=== PATIENT | female | born 1995 | race Caucasian/White ===

== ENCOUNTER 2017-10-13 05:16 | Emergency (ER) | payer BC ==
[~2017-10-13] VITALS: Ht 162.6 cm; Wt 79.4 kg
[~2017-10-13 05:16] MED LIST: AZIT-21 PO; BIRTH CONTORL PO; CETI10TA17; DICL50TA4 PO; NEOM10DR6 RIGHT EAR; PSEU120T53 PO; RT-ALBUINH IH
--- OUTSIDE RECORDS SUMMARY | 2017-10-13 05:21 | XMS REPORT ---
Author Author MARY FINLEY [facility] eClinicalWorks Address Unknown Phone Unavailable Care Team Providers Care Bulk Materials Handling Plant Operator Name Role Phone MARY FINLEY Unavailable Allergies No Known Allergies Problems Problem Type Condition Code Onset Dates Condition Status Assessment Social anxiety disorder F40.10 Active Problem Reactive airway disease 493.90 Active Problem Viral pharyngitis 462 Active Problem Social anxiety disorder F40.10 Active Problem Other general counseling and advice for contraceptive management V25.09 Active Problem Encounter for insertion of intrauterine contraceptive device V25.11 Active Problem Post-nasal discharge 473.9 Active Problem Screening examination for venereal disease V74.5 Active Medications No Known Medications Procedures Procedure Coding System Code Date Psychotherapy, patient &/family, 45 minutes, established patient CPT-4 34667 Sep 11, 2015 Results No Known Results Summary Purpose eClinicalWorks Submission
--- OUTSIDE RECORDS SUMMARY | 2017-10-13 05:21 | XMS REPORT ---
Author Author LUCIANO ROBERTS [facility] Address [address] [place] [address] Care Team Providers Care Belt Picker Name Role Phone LUCIANO ROBERTS Unavailable PROBLEMS Type Condition ICD9-CM Code [id number] Code Onset Dates Condition Status SNOMED Code Problem High ankle sprain of right lower extremity, initial encounter S93.431A Active 41249737 Problem Generalized social phobia F40.11 Active 35030734 Problem Moderate episode of recurrent major depressive disorder F33.1 Active 698660093 Problem Social anxiety disorder F40.10 Active 60397259 ALLERGIES Unknown Allergies SOCIAL HISTORY No smoking Hx information available PLAN OF CARE VITAL SIGNS MEDICATIONS Unknown Medications RESULTS No Results PROCEDURES No Known procedures IMMUNIZATIONS No Known Immunizations
--- OUTSIDE RECORDS SUMMARY | 2017-10-13 05:22 | XMS REPORT ---
Author Author MARY FINLEY [facility] eClinicalWorks Address Unknown Phone Unavailable Care Team Providers Care Grocery Caddy Name Role Phone MARY FINLEY Unavailable Allergies No Known Allergies Problems Problem Type Condition Code Onset Dates Condition Status Assessment Social anxiety disorder F40.10 Active Problem Social anxiety disorder F40.10 Active Medications No Known Medications Procedures Procedure Coding System Code Date Psychotherapy, patient &/family, 45 minutes, established patient CPT-4 75803 May 04, 2016 Results No Known Results Summary Purpose eClinicalWorks Submission
--- OUTSIDE RECORDS SUMMARY | 2017-10-13 05:22 | XMS REPORT ---
Author Author LUCIANO ROBERTS [facility] eClinicalWorks Address Unknown Phone Unavailable Care Team Providers Care Sheet Layer Name Role Phone LUCIANO ROBERTS CP Unavailable Allergies, Adverse Reactions, Alerts Substance Reaction Event Type Red Dye Info Not Available Non Drug Allergy Problems Problem Type Condition Code Onset Dates Condition Status Problem Social anxiety disorder F40.10 Active Assessment Social anxiety disorder F40.10 Active Problem Moderate episode of recurrent major depressive disorder F33.1 Active Assessment Moderate episode of recurrent major depressive disorder F33.1 Active Medications Medication Code System Code Instructions Start Date End Date Status Dosage Ortho Tri-Cyclen (28) [facility] [address]-74 0.18/0.215/0.25 MG-35 MCG Orally Once a day Apr 16, 2016 1 tablet Singulair [facility] [address]-08 10 MG Orally Once a day Mar 29, 2015 1 tablet in the evening Prozac [facility] [address]-56 10 mg Orally Once a day May 12, 2016 1 capsule in the morning Procedures Procedure Coding System Code Date Office Visit, Est Pt., Level 3 CPT-4 91462 May 12, 2016 Vital Signs Date/Time: May 12, 2016 Cardiac Monitoring Heart Rate 78 bpm Weight 192 lbs Height 64 in BMI 32.95 Index Blood Pressure Diastolic 60 mmHg Blood Pressure Systolic 118 mmHg Results No Known Results Summary Purpose eClinicalWorks Submission
--- OUTSIDE RECORDS SUMMARY | 2017-10-13 05:22 | XMS REPORT ---
Author Author AMRY FINLEY [facility] eClinicalWorks Address Unknown Phone Unavailable Care Team Providers Care Sales Representative Door To Door Name Role Phone MARY FINLEY Unavailable Allergies [...] Coding System Code Date Psychotherapy, patient &/family, 30 minutes, established patient CPT-4 23108 Mar 15, 2016 Results No Known Results Summary Purpose eClinicalWorks Submission
--- OUTSIDE RECORDS SUMMARY | 2017-10-13 05:22 | XMS REPORT ---
Author Author MEHDI HERNANDEZ [facility] eClinicalWorks Address Unknown Phone Unavailable Care Team Providers Care Safety Engineer Name Role Phone MEHDI HERNANDEZ CP Unavailable Allergies, Adverse Reactions, Alerts Substance Reaction Event Type Red Dye Info Not Available Non Drug Allergy Problems Problem Type Condition Code Onset Dates Condition Status Assessment Reactive airway disease, unspecified asthma severity, uncomplicated J45.909 Active Problem Social anxiety disorder F40.10 Active Medications Medication Code System Code Instructions Start Date End Date Status Dosage Loratadine [facility] [address]-60 10 mg Orally Once a day in the AM Apr 12, 2016 1 tablet Singulair [facility] [address]-77 10 mg Orally Once a day Apr 12, 2016 1 tablet in the evening Mirena [facility] [address]-24 20 MCG/24HR Intrauterine not defined Procedures Procedure Coding System Code Date Office Visit, Est Pt., Level 3 CPT-4 12640 Apr 12, 2016 Vital Signs Date/Time: Apr 12, 2016 Cardiac Monitoring Heart Rate 88 bpm Weight 193.7 lbs Height 64 in BMI 33.24 Index Blood Pressure Diastolic 70 mmHg Blood Pressure Systolic 124 mmHg Results No Known Results Summary Purpose eClinicalWorks Submission
--- OUTSIDE RECORDS SUMMARY | 2017-10-13 05:22 | XMS REPORT ---
Author Author MEHDI HERNANDEZ [facility] eClinicalWorks Address Unknown Phone Unavailable Care Team Providers Care Cigar Making Machine Operator Name Role Phone MEHDI HERNANDEZ CP Unavailable Allergies, Adverse Reactions, Alerts Substance Reaction Event Type Red Dye Info Not Available Non Drug Allergy Problems Problem Type Condition ICD-9 Code Onset Dates Condition Status Problem Viral pharyngitis 462 Active Problem Post-nasal discharge 473.9 Active Problem Reactive airway disease 493.90 Active Problem Encounter for insertion of intrauterine contraceptive device V25.11 Active Assessment Reactive airway disease 493.90 Active Problem Screening examination for venereal disease V74.5 Active Problem Other general counseling and advice for contraceptive management V25.09 Active Medications Medication Code System Code Instructions Start Date End Date Status Dosage Ventolin HFA [facility] [address]-59 108 (90 Base) MCG/ACT Inhalation every 4 hrs Mar 29, 2015 2 puffs as needed Mirena [facility] [address]-82 20 MCG/24HR Intrauterine not defined Singulair [facility] [address]-84 10 MG Orally Once a day Mar 29, 2015 1 tablet in the evening ZyrTEC [facility] [address]-84 10 MG Orally Once a day Mar 29, 2015 Jul 27, 2015 1 tablet as needed Procedures Procedure Coding System Code Date Office Visit, Est Pt., Level 3 CPT-4 78717 Mar 29, 2015 Vital Signs Date/Time: Mar 29, 2015 Temperature 98.5 F Weight 169.1 lbs Height 64 in BMI 29.02 Index Blood Pressure Diastolic 74 mmHg Blood Pressure Systolic 118 mmHg Cardiac Monitoring Heart Rate 84 bpm BMIPercentile 91.71 % Wt Percentile 91.3 % Results No Known Results Summary Purpose eClinicalWorks Submission
--- OUTSIDE RECORDS SUMMARY | 2017-10-13 05:22 | XMS REPORT ---
Author Author VERONA PEÑA Organization [facility] Address [address] [place] [address] Care Team Providers Care Science Consultant Name Role Phone VERONA PEÑA Unavailable PROBLEMS Type Condition ICD9-CM Code [id number] Code Onset Dates Condition Status SNOMED Code Problem Reflux esophagitis K21.0 Active 878099504 Problem High ankle sprain of right lower extremity, initial encounter S93.431A Active 41265281 Problem Social anxiety disorder F40.10 Active 58503042 Problem Generalized social phobia F40.11 Active 27186335 Problem Moderate episode of recurrent major depressive disorder F33.1 Active 168110355 ALLERGIES Substance Reaction Event Type Date Status Venlafaxine HCl ER hives Drug Allergy Jul, Active prozac rash Non Drug Allergy Jul, Active Red Dye Unknown Non Drug Allergy Jul, Active SOCIAL HISTORY No smoking Hx information available PLAN OF CARE Activity Details Follow Up 2 Months with Vincent f/delia reflux Reason: VITAL SIGNS Height 64 in 2016-07-22 Weight 195.8 lbs 2016-07-22 Temperature 97.6 degrees Fahrenheit 2016-07-22 Heart Rate 86 bpm 2016-07-22 Respiratory Rate 18 2016-07-22 BMI 33.61 kg/m2 2016-07-22 Blood pressure systolic 110 mmHg 2016-07-22 Blood pressure diastolic 72 mmHg 2016-07-22 MEDICATIONS Medication Instructions Dosage Frequency Start Date End Date Duration Status Zofran ODT 4 MG Orally every 8 hrs 1 tablet on the tongue and allow to dissolve 8h Jul, 30 day(s) Active RESULTS No Results PROCEDURES Procedure Date Ordered Related Diagnosis Body Site Office Visit, Est Pt., Level 4 Jul 22, 2016 IMMUNIZATIONS No Known Immunizations
--- OUTSIDE RECORDS SUMMARY | 2017-10-13 05:22 | XMS REPORT ---
Author Author MARY FINLEY [facility] eClinicalWorks Address Unknown Phone Unavailable Care Team Providers Care Machine Feller Name Role Phone MARY FINLEY Unavailable Allergies [...] Medications Procedures Procedure Coding System Code Date Psych diagnostic evaluation, established patient CPT-4 41494 Jul 10, 2015 Results No Known Results Summary Purpose eClinicalWorks Submission
--- OUTSIDE RECORDS SUMMARY | 2017-10-13 05:22 | XMS REPORT ---
Author Author LUCIANO ROBERTS Organization [facility] Address [address] [place] [address] Care Team Providers Care Basket Operator Name Role Phone LUCIANO ROBERTS Unavailable PROBLEMS Type Condition ICD9-CM Code [id number] Code Onset Dates Condition Status SNOMED Code Problem Reflux esophagitis K21.0 Active 379258685 Problem High ankle sprain of right lower extremity, initial encounter S93.431A Active 87187634 Problem Social anxiety disorder F40.10 Active 30114341 Problem Generalized social phobia F40.11 Active 94682484 Problem Moderate episode of recurrent major depressive disorder F33.1 Active 679511944 ALLERGIES Substance Reaction Event Type Date Status prozac rash Non Drug Allergy May, Active Red Dye Unknown Non Drug Allergy May, Active SOCIAL HISTORY Never Assessed PLAN OF CARE Activity Details Follow Up 4 Weeks Reason: VITAL SIGNS Height 64 in 2016 Weight 194.9 lbs 2016 Heart Rate 80 bpm 2016 Respiratory Rate 20 2016 BMI 33.45 kg/m2 2016 Blood pressure systolic 118 mmHg 2016 Blood pressure diastolic 70 mmHg 2016 MEDICATIONS Medication Instructions Dosage Frequency Start Date End Date Duration Status Ortho Tri-Cyclen (28) 0.18/0.215/0.25 MG-35 MCG Orally Once a day 1 tablet 24h 16 Apr, 2016 28 day(s) Active Venlafaxine HCl 37.5 MG Orally as directed 1 tablet with food for 7 days then increase to twice a day May, Active RESULTS No Results PROCEDURES No Known procedures IMMUNIZATIONS No Known Immunizations MEDICAL (GENERAL) HISTORY Type Description Date Medical History Depression Medical History Anxiety Surgical History wisdom teeth
--- OUTSIDE RECORDS SUMMARY | 2017-10-13 05:22 | XMS REPORT ---
Author CATARINA Valente [facility] eClinicalWorks Address Unknown Phone Unavailable Care Team Providers Care Material Damage Appraiser Name Role Phone CATARINA LAURA CP Unavailable Allergies, Adverse Reactions, Alerts Substance Reaction Event Type Red Dye Info Not Available Non Drug Allergy Problems Problem Type Condition Code Onset Dates Condition Status Problem Viral pharyngitis 462 Active Problem Post-nasal discharge 473.9 Active Problem Reactive airway disease 493.90 Active Problem Encounter for insertion of intrauterine contraceptive device V25.11 Active Assessment Pain in left toe(s) M79.675 Active Problem Screening examination for venereal disease V74.5 Active Problem Other general counseling and advice for contraceptive management V25.09 Active Medications Medication Code System Code Instructions Start Date End Date Status Dosage Mirena [facility] [address]-60 20 MCG/24HR Intrauterine not defined Procedures Procedure Coding System Code Date Office Visit, Est Pt., Level 4 CPT-4 51054 May 23, 2015 X-RAY EXAM OF FOOT CPT-4 98294 May 23, 2015 Vital Signs Date/Time: May 23, 2015 Temperature 98.1 F Weight 177.3 lbs Height 64 in BMI 30.43 Index Blood Pressure Diastolic 72 mmHg Blood Pressure Systolic 126 mmHg Cardiac Monitoring Heart Rate 80 bpm BMIPercentile 93.69 % Wt Percentile 93.77 % Results No Known Results Summary Purpose eClinicalWorks Submission
--- OUTSIDE RECORDS SUMMARY | 2017-10-13 05:22 | XMS REPORT ---
Author JOE Zapien [facility] eClinicalWorks Address Unknown Phone Unavailable Care Team Providers Care Grain Elevator Operator Name Role Phone JOE BRYAN CP Unavailable Allergies, Adverse Reactions, Alerts Substance Reaction Event Type Red Dye Info Not Available Non Drug Allergy Problems Problem Type Condition Code Onset Dates Condition Status Assessment Ear pain, right H92.01 Active Problem Reactive airway disease 493.90 Active Problem Viral pharyngitis 462 Active Problem Social anxiety disorder F40.10 Active Problem Other general counseling and advice for contraceptive management V25.09 Active Problem Encounter for insertion of intrauterine contraceptive device V25.11 Active Problem Post-nasal discharge 473.9 Active Problem Screening examination for venereal disease V74.5 Active Medications Medication Code System Code Instructions Start Date End Date Status Dosage Mirena [facility] [address]-15 20 MCG/24HR Intrauterine not defined Procedures Procedure Coding System Code Date Office Visit, Est Pt., Level 2 CPT-4 91317 Jul 28, 2015 Vital Signs Date/Time: Jul 28, 2015 Temperature 98.3 F Weight 184 lbs Height 64 in BMI 31.58 Index Blood Pressure Diastolic 68 mmHg Blood Pressure Systolic 118 mmHg Cardiac Monitoring Heart Rate 78 bpm Results No Known Results Summary Purpose eClinicalWorks Submission
--- OUTSIDE RECORDS SUMMARY | 2017-10-13 05:22 | XMS REPORT ---
Author Author GILDARDO ZARAGOZA Organization [facility] Address [address] [place] [address] Care Team Providers Care Registered Dental Assistant Rda Name Role Phone VIRGILIO ZARAGOZAY Unavailable PROBLEMS Type Condition ICD9-CM Code [id number] Code Onset Dates Condition Status SNOMED Code Problem Social anxiety disorder F40.10 Active 34606965 Assessment Dyspareunia in female N94.1 Jan, Active 05409615 Assessment Right lower quadrant abdominal pain R10.31 Jan, Active 419865574 ALLERGIES Substance Reaction Event Type Date Status Red Dye Unknown Non Drug Allergy Jan, Active SOCIAL HISTORY No smoking Hx information available PLAN OF CARE VITAL SIGNS Height 64 in 2016-02-25 Weight 191.0 lbs 2016-02-25 Heart Rate 78 bpm 2016-02-25 Respiratory Rate 18 2016-02-25 BMI 32.78 kg/m2 2016-02-25 Blood pressure systolic 122 mmHg 2016-02-25 Blood pressure diastolic 84 mmHg 2016-02-25 MEDICATIONS Medication Instructions Dosage Frequency Start Date End Date Duration Status Mirena 20 MCG/24HR Active Ibuprofen 200 MG Orally every 6 hrs 1 tablet as needed 6h Active RESULTS No Results PROCEDURES Procedure Date Ordered Related Diagnosis Body Site Office Visit, Est Pt., Level 3 February 25, 2016 IMMUNIZATIONS No Known Immunizations
--- OUTSIDE RECORDS SUMMARY | 2017-10-13 05:22 | XMS REPORT ---
Author PAUL Bower [facility] eClinicalWorks Address Unknown Phone Unavailable Care Team Providers Care Residential Appraiser Name Role Phone PAUL LOFTON CP Unavailable Allergies, Adverse Reactions, Alerts Substance Reaction Event Type Red Dye Info Not Available Non Drug Allergy Problems Problem Type Condition Code Onset Dates Condition Status Assessment Abdominal pain, unspecified location R10.9 Active Assessment Eczema, unspecified type L30.9 Active Problem Reactive airway disease 493.90 Active [...] Start Date End Date Status Dosage Mirena [facility] [address]-98 20 MCG/24HR Intrauterine not defined Procedures Procedure Coding System Code Date Office Visit, Est Pt., Level 3 CPT-4 56954 Mar 19, 2016 Vital Signs Date/Time: Mar 19, 2016 Cardiac Monitoring Heart Rate 80 bpm Weight 194.6 lbs Height 64 in BMI 33.40 Index Blood Pressure Diastolic 76 mmHg Blood Pressure Systolic 120 mmHg Results No Known Results Summary Purpose eClinicalWorks Submission
--- OUTSIDE RECORDS SUMMARY | 2017-10-13 05:22 | XMS REPORT ---
Author Author MARY FINLEY [facility] eClinicalWorks Address Unknown Phone Unavailable Care Team Providers Care Staff Air Tactical Officer Name Role Phone MARY FINLEY Unavailable Allergies No Known Allergies Problems Problem Type Condition Code Onset Dates Condition Status Assessment Social anxiety disorder F40.10 Active Problem Social anxiety disorder F40.10 Active Medications No Known Medications Procedures Procedure Coding System Code Date Psychotherapy, patient &/family, 45 minutes, established patient CPT-4 81043 May 10, 2016 Results No Known Results Summary Purpose eClinicalWorks Submission
--- OUTSIDE RECORDS SUMMARY | 2017-10-13 05:22 | XMS REPORT ---
Author KIRILL Polanco [facility] eClinicalWorks Address Unknown Phone Unavailable Care Team Providers Care Bulk Sausage Casing Tier Off Name Role Phone KIRILL PETERSEN CP Unavailable Allergies, Adverse Reactions, Alerts Substance Reaction Event Type Red Dye Info Not Available Non Drug Allergy Problems Problem Type Condition Code Onset Dates Condition Status Assessment Viral syndrome B34.9 Active Assessment Sore throat J02.9 Active Assessment Nausea R11.0 Active Problem Reactive airway disease 493.90 Active [...] Start Date End Date Status Dosage Mirena [facility] [address]-52 20 MCG/24HR Intrauterine not defined Procedures Procedure Coding System Code Date Office Visit, Est Pt., Level 3 CPT-4 97692 January 22, 2016 STREP A ASSAY W/OPTIC CPT-4 28559 January 22, 2016 Vital Signs Date/Time: January 22, 2016 Cardiac Monitoring Heart Rate 86 bpm Weight 194 lbs Height 64 in Blood Pressure Diastolic 72 mmHg Blood Pressure Systolic 128 mmHg Results No Known Results Summary Purpose eClinicalWorks Submission
--- OUTSIDE RECORDS SUMMARY | 2017-10-13 05:22 | XMS REPORT ---
Author Author LUCIANO ROBERTS [facility] eClinicalWorks Address Unknown Phone Unavailable Care Team Providers Care Social Media Developer Name Role Phone LUCIANO ROBERTS CP Unavailable Allergies, Adverse Reactions, Alerts Substance Reaction Event Type prozac rash Non Drug Allergy Red Dye Info Not Available Non Drug Allergy Problems Problem Type Condition Code Onset Dates Condition Status Problem Social anxiety disorder F40.10 Active Assessment Social anxiety disorder F40.10 Active Problem Moderate episode of recurrent major depressive disorder F33.1 Active Assessment Moderate episode of recurrent major depressive disorder F33.1 Active Medications Medication Code System Code Instructions Start Date End Date Status Dosage Venlafaxine HCl [facility] [address]-86 37.5 MG Orally as directed 2016 1 tablet with food for 7 days then increase to twice a day Ortho Tri-Cyclen (28) [facility] [address]-86 0.18/0.215/0.25 MG-35 MCG Orally Once a day Apr 16, 2016 1 tablet Procedures Procedure Coding System Code Date Office Visit, Deepa Pt., Level 2 CPT-4 64201 2016 Vital Signs Date/Time: 2016 Cardiac Monitoring Heart Rate 80 bpm Weight 194.9 lbs Height 64 in BMI 33.45 Index Blood Pressure Diastolic 70 mmHg Blood Pressure Systolic 118 mmHg Results No Known Results Summary Purpose eClinicalWorks Submission
--- OUTSIDE RECORDS SUMMARY | 2017-10-13 05:23 | XMS REPORT ---
Author Author MARY FINLEY [facility] eClinicalWorks Address Unknown Phone Unavailable Care Team Providers Care Human Resources Operations Manager Name Role Phone MARY FINLEY Unavailable Allergies [...] patient &/family, 45 minutes, established patient CPT-4 03318 February 11, 2016 Results No Known Results Summary Purpose eClinicalWorks Submission
--- OUTSIDE RECORDS SUMMARY | 2017-10-13 05:23 | XMS REPORT ---
Author PAUL Bower [facility] eClinicalWorks Address Unknown Phone Unavailable Care Team Providers Care Quality Assistant Name Role Phone PAUL LOFTON CP Unavailable Allergies, Adverse Reactions, Alerts Substance Reaction Event Type Red Dye Info Not Available Non Drug Allergy Problems Problem Type Condition Code Onset Dates Condition Status Assessment Sore throat J02.9 Active Assessment Pharyngitis, unspecified etiology J02.9 Active Problem Reactive airway disease 493.90 Active [...] Start Date End Date Status Dosage Mirena [facility] [address]-94 20 MCG/24HR Intrauterine not defined Procedures Procedure Coding System Code Date Office Visit, Est Pt., Level 3 CPT-4 69721 Mar 25, 2016 STREP A ASSAY W/OPTIC CPT-4 46625 Mar 25, 2016 Vital Signs Date/Time: Mar 25, 2016 Cardiac Monitoring Heart Rate 86 bpm Weight 193.6 lbs Height 64 in BMI 33.23 Index Blood Pressure Diastolic 72 mmHg Blood Pressure Systolic 122 mmHg Results No Known Results Summary Purpose eClinicalWorks Submission
--- OUTSIDE RECORDS SUMMARY | 2017-10-13 05:23 | XMS REPORT ---
Author Author MEHDI HERNANDEZ Organization eClinicalWorks Address Unknown Phone Unavailable Care Team Providers Care Liquid Loader Name Role Phone MEHDI HERNANDEZ CP Unavailable Allergies, Adverse Reactions, Alerts Substance Reaction Event Type Red Dye Info Not Available Non Drug Allergy Problems Problem Type Condition Code Onset Dates Condition Status Assessment Knee pain M25.569 Active Problem Reactive airway disease 493.90 Active [...] Instructions Start Date End Date Status Dosage Ibuprofen [facility] [address]-07 200 MG Orally every 6 hrs 1 tablet as needed Mirena [facility] [address]-89 20 MCG/24HR Intrauterine not defined Procedures Procedure Coding System Code Date Office Visit, Est Pt., Level 3 CPT-4 10344 November 13, 2015 Vital Signs Date/Time: November 13, 2015 Temperature 98.7 F Weight 191.0 lbs Height 64 in BMI 32.78 Index Blood Pressure Diastolic 78 mmHg Blood Pressure Systolic 120 mmHg Cardiac Monitoring Heart Rate 76 bpm Results No Known Results Summary Purpose eClinicalWorks Submission
--- OUTSIDE RECORDS SUMMARY | 2017-10-13 05:23 | XMS REPORT ---
Author Author BANMARCO Organization [facility] Address [address] [place] [address] Care Team Providers Care Azure Developer Name Role Phone MARCO CEVALLOS Unavailable PROBLEMS Type Condition ICD9-CM Code NFA08-PR Code Onset Dates Condition Status SNOMED Code Problem Social anxiety disorder F40.10 Active 98513058 Assessment Encounter for IUD removal Z30.432 Apr, Active [id number] Assessment Oral contraception initial prescription Z30.011 Apr, Active [id number] ALLERGIES Substance Reaction Event Type Date Status Red Dye Unknown Non Drug Allergy Apr, Active SOCIAL HISTORY No smoking Hx information available PLAN OF CARE VITAL SIGNS Height 64 in 2016-04-16 Weight 195.5 lbs 2016-04-16 Heart Rate 84 bpm 2016-04-16 Respiratory Rate 18 2016-04-16 BMI 33.55 kg/m2 2016-04-16 Blood pressure systolic 136 mmHg 2016-04-16 Blood pressure diastolic 74 mmHg 2016-04-16 MEDICATIONS Medication Instructions Dosage Frequency Start Date End Date Duration Status Ventolin HFA 108 (90 Base) MCG/ACT Inhalation every 4 hrs 2 puffs as needed 4h Mar, Active Singulair 10 MG Orally Once a day 1 tablet in the evening 24h Mar, 30 day(s) Active Ibuprofen 200 MG Orally every 6 hrs 1 tablet as needed 6h Active Ortho Tri-Cyclen (28) 0.18/0.215/0.25 MG-35 MCG Orally Once a day 1 tablet 24h 16 Apr, 2016 28 day(s) Active Zofran ODT 8 MG Orally 3 times a day as directed 8h Dec, Active Mucinex DM 30-600 MG Orally every 12 hrs 1 tablet as needed 12h Active Pepto-Bismol 262 MG Orally 8 time(s) a day 2 tablets as needed Active Tessalon Perles 100 MG Orally Three times a day 1 capsule as needed 8h Mar, Active RESULTS Name Result Date Reference Range TEST, URINE (IN HOUSE) 2016-04-16 RESULTS Negative Lot # [id number] Control + Exp date PROCEDURES Procedure Date Ordered Related Diagnosis Body Site URINE TEST Apr 16, 2016 REMOVE INTRAUTERINE DEVICE Apr 16, 2016 IMMUNIZATIONS No Known Immunizations
--- OUTSIDE RECORDS SUMMARY | 2017-10-13 05:23 | XMS REPORT | Continuity of Care Document ---
Author Author [facility] Address Unknown Phone Unavailable Allergies Active Description Code Type Severity Reaction Onset Reported/Identified Relationship to Patient Clinical Status Yes amoxicillin Drug N/A N/A Yes Red Dye N/A N/A Yes red dye [id number] Drug Allergy Unknown HIVES 06/09/2014 Yes red dye Drug Allergy N/A N/A 10/03/2014 Medications Medication Packaging Start Date Stop Date Route Dosage Sig amoxicillin 02/03/2017 amoxicillin ibuprofen 02/03/2017 ibuprofen amoxicillin 02/03/2017 PO 500 mg / 1 cap famotidine 02/03/2017 03/05/2017 PO 20 mg / 1 tab Problems Date Dx Coded Attending Type Code Diagnosis Diagnosed By 06/09/2014 DOUG CHAN MD Ot 382.9 06/09/2014 DOUG CHAN MD Ot 388.70 10/03/2014 JAZMIN BOLANOS APRN V25.09 CONTRACEPTIVE COUNSELING - GENERAL 10/03/2014 JAZMIN BOLANOS APRN V74.5 STD SCREEN 10/10/2014 JAZMIN BOLANOS APRN V25.11 IUD INSERTION 11/21/2014 JAZMIN BOLANOS APRN V25.42 CONTRACEPTION SURVEILLANCE (IUD) 04/26/2015 SON MCKEON DO Ot 924.3 04/26/2015 SON MCKEON DO Ot 959.7 04/26/2015 SON MCKEON DO Ot E849.0 04/26/2015 SON MCKEON DO Ot E917.4 05/21/2015 EMILY HARDY DO, Ot J34.9 UNSPECIFIED DISORDER OF NOSE AND NASAL S 05/21/2015 EMILY HARDY DO Ot R11.0 NAUSEA 05/21/2015 EMILY HARDY DO, Ot R42 DIZZINESS AND GIDDINESS 05/21/2015 EMILY HARDY DO Ot R55 SYNCOPE AND COLLAPSE 05/23/2015 EMILY HARDY DO, Ot J34.9 05/23/2015 HAYLEYEMILY Flores DO Ot R11.0 05/23/2015 HAYLEYEMILY Flores DO Ot R42 05/23/2015 EMILY HARDY DO Ot R55 06/29/2016 DAVID MARCIAL APRN Ot S99.911A UNSPECIFIED INJURY OF RIGHT ANKLE, INITI 06/29/2016 DAVID MARCIAL MANAGEMENT LIAISON Ot W19.XXXA UNSPECIFIED FALL, INITIAL ENCOUNTER 06/29/2016 DAVID MARCIAL MANAGEMENT LIAISON Ot Y92.[address] OF OCCURRENCE O 06/29/2016 DAVID MARCIAL MANAGEMENT LIAISON Ot Y99.8 OTHER EXTERNAL CAUSE STATUS 07/14/2016 DAVID MARCIAL MANAGEMENT LIAISON Ot S99.911A UNSPECIFIED INJURY OF RIGHT ANKLE, INITI 07/14/2016 DAVID MARCIAL MANAGEMENT LIAISON Ot W19.XXXA UNSPECIFIED FALL, INITIAL ENCOUNTER 07/14/2016 MARCIALDAVID Valencia MANAGEMENT LIAISON Ot Y92.[address] OF OCCURRENCE O 07/14/2016 DAVID MARCIAL APRN Ot Y99.8 OTHER EXTERNAL CAUSE STATUS 02/03/2017 Cyril Del Cid Final R10.13 Epigastric pain 02/03/2017 Cyril Del Cid Final R74.0 Nonspecific elevation of levels of transaminase and lactic a Procedures Code Description [place] [address] Emergency department visit for the evalu YANI SARABIA 02/03/2017 Results Test Result Range COMPREHENSIVE METABOLIC PANEL - 02/03/17 11:08 ALT (SGPT) 265 U/L 10-60 AST (SGOT) 472 U/L 10-42 Albumin 4.4 g/dL 3.2-5.5 Alkaline Phosphatase 130 U/L 42-121 Anion Gap 12 mmol/L NRG BUN 13 mg/dL 6-20 Calcium 9.5 mg/dL 8.5-10.5 Calculated GFR >60.0 mL/min/1.73sq >60 Carbon Dioxide, Total 27 mmol/L 21-31 Chloride 96 mmol/L 101-111 Creatinine 0.7 mg/dL 0.5-1.2 Glucose Level 110 mg/dL 70-100 Potassium 3.7 mmol/L 3.6-5.0 Sodium 135 mmol/L 135-145 Total Bilirubin 1.1 mg/dL 0.2-1.0 Total Protein 7.4 g/dL 6.0-8.0 LIPASE - 02/03/17 11:08 Lipase 29 U/L 8-57 MONOTEST - 02/03/17 11:08 Monotest NEGATIVE NEG Encounters ACCT No. Visit Date/Time Discharge Status Pt. Type Provider Facility Loc./Unit Complaint [id number] 11/21/2014 10:25:00 11/21/2014 23:59:59 CLS Outpatient LUIS MIGUEL URENA JAZMIN A [id number] 06/28/2016 16:27:00 06/28/2016 23:59:59 CLS Outpatient DAVID MARCIAL APRN [facility] RAD INJ OF RIGHT ANKLE [id number] 05/21/2015 09:57:00 05/21/2015 12:09:00 DIS Emergency EMILY HARDY DO [facility] ER SYNCOPAL EPISODE DIZZY/ NAUSEA [id number] 04/26/2015 13:23:00 04/26/2015 14:40:00 DIS Emergency SON MCKEON DO [facility] ER [id number] 06/09/2014 07:18:00 06/09/2014 07:51:00 DIS Emergency DUSTIN CHA, DOUG Muñoz [facility] ER [id number] 10/13/2017 05:18:00 ACT Emergency TAVO CHA, ANGELICA Leigh [facility] ER CP [id number] 02/03/2017 10:03:00 02/03/2017 13:51:00 DIS Emergency Cyril Del Cid [facility] ER Abdominal Pain
--- OUTSIDE RECORDS SUMMARY | 2017-10-13 05:23 | XMS REPORT ---
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
--- OUTSIDE RECORDS SUMMARY | 2017-10-13 05:23 | XMS REPORT ---
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
[2017-10-13] MEDS ORDERED: LIDOCAINE 2% VISCOUS 15 ML UDC PO ONE (05:30)
[2017-10-13] MEDS ORDERED: ANTACID SUSP 30 ML UDC (MYLANTA) PO ONE (05:30)
[2017-10-13] MEDS ORDERED: ONDANSETRON 4 MG (ZOFRAN) ORAL DISSOLVE TAB SL ONE (05:30)
--- NOTE | 2017-10-13 06:21 | ED Chest Pain ---
General Chief Complaint: Chest Pain Stated Complaint: CP Nursing Triage Note: pt presents to er with complaint of chest pain that started this morning. states pain radiates to her back. Nursing Sepsis Screen: No Definite Risk Source: patient Exam Limitations: no limitations History of Present Illness Date Seen by Provider: Oct 13, 2017 Time Seen by Provider: 05:18 Initial Comments This 22-year-old male presents to the emergency room with epigastric pain radiating to the mid back. She has had some symptoms off and on for several days but pain was severe this morning. She was prescribed famotidine previously for similar symptoms. Last night she ate shrimp lo mein. She has only had liquids since then. She woke with the severe pain around 04:30. She took some Pepcid and ibuprofen along with some Pepsi. This did not help her pain. She is nauseated but has no vomiting. Her last menstrual period was October 03. Allergies and Home Medications Allergies Coded Allergies: red dye (Unverified Allergy, Unknown, HIVES, 06/09/14) Home Medications No Active Prescriptions or Reported Meds Patient Home Medication List Home Medication List Reviewed: Yes Review of Systems Constitutional: no symptoms reported EENTM: No Symptoms Reported Respiratory: No Symptoms Reported Cardiovascular: No Symptoms Reported Gastrointestinal: See HPI Genitourinary: No Symptoms Reported Musculoskeletal: no symptoms reported Skin: no symptoms reported Psychiatric/Neurological: No Symptoms Reported Endocrine: No Symptoms Reported Past Kpgkzux-Owbvse-Uzmpsr Hx Patient Social History Alcohol Use: Denies Use Recreational Drug Use: No Smoking Status: Never a Smoker Recent Foreign Travel: No Contact w/Someone Who Travel: No Recent Infectious Disease Expo: No Immunizations Up To Date Tetanus Booster (TDap): Less than 5yrs Seasonal Allergies Seasonal Allergies: No Surgeries History of Surgeries: Yes (WISDOM TEETH) Respiratory History of Respiratory Disorde: Yes Respiratory Disorders: Chronic Bronchitis Cardiovascular History of Cardiac Disorders: No Neurological History of Neurological Disord: No Reproductive System : No Last Menstrual Period: Oct 03, 2017 Hx Reproductive Disorders: No (on Merina) BUSHEL GIRL History: IUD Gastrointestinal History of Gastrointestinal Di: No Musculoskeletal History of Musculoskeletal Dis: No Endocrine History of Endocrine Disorders: No HEENT History of HEENT Disorders: No Cancer History of Cancer: No Psychosocial History of Psychiatric Problem: Yes Behavioral Health Disorders: Anxiety, Depression Integumentary History of Skin or Integumenta: No Blood Transfusions History of Blood Disorders: No Adverse Reaction to a Blood Tr: No Physical Exam Vital Signs Vital Signs - First Documented 10/13/17 05:20 Temp 97.0 Pulse 83 Resp 12 B/P (MAP) 130/76 (94) Pulse Ox 99 O2 Delivery Room Air Capillary Refill : Less Than 3 Seconds General Appearance: No Apparent Distress, WD/WN HEENT: PERRL/EOMI, Normal ENT Inspection Neck: Normal Inspection Respiratory: Lungs Clear, Normal Breath Sounds, No Accessory Muscle Use, No Respiratory Distress Cardiovascular: Regular Rate, Rhythm, No Edema, No Murmur Gastrointestinal: Normal Bowel Sounds, Non Tender, Soft, Tenderness Extremity: Normal Inspection, No Pedal Edema Neurologic/Psychiatric: Alert, Oriented x3, No Motor/Sensory Deficits, Normal Mood/Affect, parking analyst II-XII Norm as Tested Skin: Normal Color, Warm/Dry Progress/Results/Core Measures Results/Orders Lab Results Laboratory Tests Test 10/13/17 06:15 Range/Units White Blood Count 7.5 4.3-11.0 10^3/uL Red Blood Count 3.96 L 4.35-5.85 10^6/uL Hemoglobin 12.0 11.5-16.0 G/DL Hematocrit 36 35-52 % Mean Corpuscular Volume 90 80-99 FL Mean Corpuscular Hemoglobin 30 25-34 PG Mean Corpuscular Hemoglobin Concent 34 32-36 G/DL Red Cell Distribution Width 13.4 10.0-14.5 % Platelet Count 309 130-400 10^3/uL Mean Platelet Volume 11.2 H 7.4-10.4 FL Neutrophils (%) (Auto) 51 42-75 % Lymphocytes (%) (Auto) 35 12-44 % Monocytes (%) (Auto) 12 0-12 % Eosinophils (%) (Auto) 2 0-10 % Basophils (%) (Auto) 0 0-10 % Neutrophils # (Auto) 3.8 1.8-7.8 X 10^3 Lymphocytes # (Auto) 2.6 1.0-4.0 X 10^3 Monocytes # (Auto) 0.9 0.0-1.0 X 10^3 Eosinophils # (Auto) 0.1 0.0-0.3 10^3/uL Basophils # (Auto) 0.0 0.0-0.1 10^3/uL Sodium Level 143 135-145 MMOL/L Potassium Level 4.0 3.6-5.0 MMOL/L Chloride Level 112 H 98-107 MMOL/L Carbon Dioxide Level 23 21-32 MMOL/L Anion Gap 8 5-14 MMOL/L Blood Urea Nitrogen 14 7-18 MG/DL Creatinine 0.78 0.60-1.30 MG/DL Estimat Glomerular Filtration Rate > 60 BUN/Creatinine Ratio 18 Glucose Level 98 70-105 MG/DL Calcium Level 8.8 8.5-10.1 MG/DL Total Bilirubin 0.3 0.1-1.0 MG/DL Aspartate Amino Transf (AST/SGOT) 17 5-34 U/L Alanine Aminotransferase (ALT/SGPT) 14 0-55 U/L Alkaline Phosphatase 78 40-136 U/L C-Reactive Protein High Sensitivity 1.34 H 0.00-0.50 MG/DL Total Protein 6.7 6.4-8.2 GM/DL Albumin 3.9 3.2-4.5 GM/DL Lipase 17 8-78 U/L Serum Test, Qualitative NEGATIVE NEGATIVE My Orders Orders - ANGELICA VO MD Ondansetron Oral Dissolve Tab (Zofran (10/13/17 05:30) Lidocaine 2% Viscous 15 Ml (Xylocaine Vi (10/13/17 05:30) Antacid Suspension (Mylanta Suspension (10/13/17 05:30) Cbc With Automated Diff (10/13/17 06:11) Comprehensive Metabolic Panel (10/13/17 06:11) Hs C Reactive Protein (10/13/17 06:11) Hcg,Qualitative Serum (10/13/17 06:11) Lipase (10/13/17 06:11) Saline Lock/Iv-Start (10/13/17 06:11) Medications Given in ED Current Medications Medications Dose Ordered Sig/Juan Francisco Route Start Time Stop Time Status Last Admin Dose Admin Al Hydrox/Mg Hydrox/Simethicone 30 ml ONCE ONCE PO 10/13/17 05:30 10/13/17 05:31 DC 10/13/17 05:51 30 ML Lidocaine HCl 15 ml ONCE ONCE PO 10/13/17 05:30 10/13/17 05:31 DC 10/13/17 05:51 15 ML Ondansetron HCl 8 mg ONCE ONCE SL 10/13/17 05:30 10/13/17 05:31 DC 10/13/17 05:37 8 MG Vital Signs/I&O Vital Sign - Last 12Hours 10/13/17 05:20 Temp 97.0 Pulse 83 Resp 12 B/P (MAP) 130/76 (94) Pulse Ox 99 O2 Delivery Room Air Blood Pressure Mean: 94 Progress Note #1: Time: 06:28 Progress Note Patient did not have significant improvement in symptoms with GI cocktail and Zofran. On reexamination she is still quite tender in the epigastrium and a little bit in the upper quadrants. Lab work will be obtained and ultrasound will be considered pending lab results. Progress Note #2: Time: 07:31 Progress Note Labs were ordered and were reviewed. They were relatively unremarkable. In the meantime patient fell asleep and pain resolved. On repeat examination she is no longer tender. Departure Impression Impression: Primary Impression: Gastric pain Additional Impression: Nausea Disposition: 01 HOME, SELF-CARE Condition: Improved Departure-Patient Inst. Decision time for Depature: 07:30 Referrals: NO,LOCAL PHYSICIAN (PCP/Family) Primary Care Physician Patient Instructions: Acute Abdomen (Belly Pain), Adult (DC) Add. Discharge Instructions: Continue taking famotidine (Pepcid) twice daily. Avoid the following: Fatty or greasy foods, eating close to bedtime, eating large meals, caffeine, carbonation, chocolate, alcohol, tobacco, citrus fruits and juices, tomato products, mints, NSAID medications such as ibuprofen or naproxen, spicy foods, or anything else you know irritates your stomach. Follow-up with your primary care provider. If you continue to have symptoms, discuss obtaining an outpatient gallbladder ultrasound and/or upper endoscopy. Return to the ER if symptoms worsen significantly. All discharge instructions reviewed with patient and/or family. Voiced understanding. Scripts No Active Prescriptions or Reported Meds ANGELICA VO MD Oct 13, 2017 06:21
[2017-10-13 06:27] LABS: BASOPHILS % (AUTO) 0 % (0-10); EOSINOPHILS # (AUTO) 0.1 10^3/uL (0.0-0.3); EOSINOPHILS % (AUTO) 2 % (0-10); HEMATOCRIT 36 % (35-52); LYMPHOCYTES # (AUTO) 2.6 X 10^3 (1.0-4.0); LYMPHOCYTES % (AUTO) 35 % (12-44); MEAN CORPUSCULAR HEMOGLOBIN 30 PG (25-34); MEAN CORPUSCULAR HGB CONC 34 G/DL (32-36); MEAN CORPUSCULAR VOLUME 90 FL (80-99); MEAN PLATELET VOLUME 11.2 FL (7.4-10.4); MONOCYTES # (AUTO) 0.9 X 10^3 (0.0-1.0); MONOCYTES % (AUTO) 12 % (0-12); NEUTROPHILS # (AUTO) 3.8 X 10^3 (1.8-7.8); NEUTROPHILS % (AUTO) 51 % (42-75); PLATELET COUNT 309 10^3/uL (130-400); RED BLOOD COUNT 3.96 10^6/uL (4.35-5.85); RED CELL DISTRIBUTION WIDTH 13.4 % (10.0-14.5); WHITE BLOOD COUNT 7.5 10^3/uL (4.3-11.0)
[2017-10-13 07:03] LABS: ALANINE AMINOTRANSFERASE 14 U/L (0-55); ALBUMIN 3.9 GM/DL (3.2-4.5); ALKALINE PHOSPHATASE 78 U/L (40-136); BILIRUBIN,TOTAL 0.3 MG/DL (0.1-1.0); BUN/CREATININE RATIO 18; CALCIUM 8.8 MG/DL (8.5-10.1); CARBON DIOXIDE 23 MMOL/L (21-32); CHLORIDE 112 MMOL/L (98-107); CREATININE SERUM 0.78 MG/DL (0.60-1.30); GFR ESTIMATED > 60; GLUCOSE 98 MG/DL (70-105); LIPASE 17 U/L (8-78); SODIUM 143 MMOL/L (135-145); TOTAL PROTEIN 6.7 GM/DL (6.4-8.2)
[2017-10-13 07:49] VITALS: BP 118/73
== END 2017-10-13 07:49 | disposition home or self-care (01) ==
LOC: EDUNIT# 05:16 → ER 05:18
DX: R10.13 Epigastric pain (principal); R11.0 Nausea; F41.9 Anxiety disorder, unspecified; J42 Unspecified chronic bronchitis; F32.9 Major depressive disorder, single episode, unspecified; Z32.02 Encounter for pregnancy test, result negative; Z97.5 Presence of (intrauterine) contraceptive device; Z91.041 Radiographic dye allergy status
CPT/HCPCS: 36415; 80053; 83690; 84703; 85025; 86141